=== PATIENT | male | born 1940 | race Hispanic/Latino ===

== ENCOUNTER 2024-03-23 00:27 | Inpatient (IN) | payer SELFPAY ==
[2024-03-23 01:21] LABS: #Basophils 0.03 10x3/uL (0.0-0.2); #Eosinophils Less than 0.03 10x3/uL (0.0-0.7); %Basophils 0.2 % (0.0-1.0); %Lymphocytes 3.4 % (21.0-51.0); %Monocytes 3.5 % (0.0-10.0); %Neutrophils 92.4 % (42.0-75.0); Hemoglobin 12.4 g/dL (14.0-18.0); Mean Corpuscular HGB CONC 34.4 g/dL (32.0-36.0); Mean Corpuscular Volume 87.2 fL (78.0-98.0); Mean Platelet Volume 11.2 fL (7.4-10.4); Platelet Count 148 10x3/uL (130-400); Red Blood Cell (RBC) Count 4.13 mill/uL (4.70-6.10)
[2024-03-23 01:42] LABS: ALT (SGPT) 99 U/L (8-55); AST (SGOT) 66 U/L (5-34); Albumin 2.7 g/dL (3.4-4.8); Alkaline Phosphatase 193 U/L (40-110); Anion Gap 14 mmol/L (10-20); BUN (Urea Nitrogen) 16 mg/dL (8.4-25.7); Bilirubin, Total 5.6 mg/dL (0.2-1.2); Calc. Creatinine Clearance 0 mL/min (70-130); Calcium 7.8 mg/dL (7.8-10.44); Carbon Dioxide 19 mmol/L (23-31); Chloride 104 mmol/L (98-107); Estimated GFR 87; Glucose 271 mg/dL (83-110); Lipase 197 U/L (8-78); Potassium 3.4 mmol/L (3.5-5.1); Protein, Total 5.7 g/dL (5.8-8.1); Sodium 134 mmol/L (136-145)
[2024-03-23] MEDS ORDERED: Piperacillin/Tazobactam 4.5 GM VIAL ONE (04:44)
[2024-03-23] MEDS ORDERED: Sodium Chloride 0.9% 100 ML ONE (04:44)
[2024-03-23] MEDS ORDERED: Dextrose 5% in Water 1,000 ML IV PRN (04:52)
[2024-03-23] MEDS ORDERED: Glucagon 1 MG/ML KIT IM PRN (04:52)
[2024-03-23] MEDS ORDERED: Dextrose 50% Abboject 50 ML SYRINGE SLOW IVP PRN (04:52)
[2024-03-23 05:58] LABS: Magnesium 1.5 mg/dL (1.6-2.6)
[2024-03-23] MEDS: Sodium Chloride 0.9% 1,000 ML IV SCH (06:14)
[2024-03-23] MEDS: Potassium Chloride 20 MEQ TAB PO SCH ×2 (06:14→15:51)
[2024-03-23] MEDS: Insulin Lispro 100 UNIT/ML 10 ML VIAL SC PRN (06:22)
[2024-03-23] MEDS ORDERED: Magnesium Sulfate 2 GM in Sodium Chloride 0.9% 100 ML IVPB SCH (06:45)
[2024-03-23] MEDS: Magnesium 2 GM/50 ML(in water) 2 GM in Premix 1 BAG IVPB SCH (07:06)
[2024-03-23 07:24] VITALS: BMI 25.8
[2024-03-23] MEDS ORDERED: Magnesium Sulfate 4 GM in Sodium Chloride 0.9% 250 ML 250 ML IVPB SCH (07:45)
[2024-03-23] MEDS ORDERED: Electrolyte Replacement Protocol 1 EACH FS SCH (07:45)
[2024-03-23] MEDS ORDERED: Electrolyte Replacement Protocol FS PRN (08:00)
[2024-03-23] MEDS: Piperacillin/Tazobactam 3.375 GM in Sodium Chloride 0.9% 100 ML IVPB SCH (08:10)
[2024-03-23] MEDS: NS 0.9% w/ 40 MEQ KCL 1,000 ML IV SCH ×2 (08:10→19:07)
[2024-03-23] MEDS ORDERED: Indomethacin 50 MG SUPP ONE (08:33)
[2024-03-23] MEDS ORDERED: Iopamidol 30 ML ONE (08:33)
[2024-03-23] MEDS: Potassium Chloride 20 MEQ in Premix 2 BAG IVPB SCH (09:18)
[2024-03-23] MEDS ORDERED: dilTIAZem 25 MG/5 ML VIAL ONE (10:17)
[2024-03-23] MEDS ORDERED: Bupivacaine PF 0.5% 30 ML VIAL ONE (10:20)
[2024-03-23] MEDS ORDERED: EPINEPHrine 1 MG/ML VIAL ONE (10:20)
[2024-03-23] MEDS ORDERED: Ondansetron PF 4 MG/2 ML Vial ONE (10:26)
[2024-03-23] MEDS ORDERED: Dexamethasone 4 mg/ml Vial ONE (10:26)
[2024-03-23] MEDS ORDERED: Rocuronium Bromide 10 MG/ML (10ML VIAL) ONE (10:26)
[2024-03-23] MEDS ORDERED: PROPOFOL 20 ML ONE (10:26)
[2024-03-23] MEDS ORDERED: Lidocaine 1% PF 5 ML VIAL ONE (10:26)
[2024-03-23] MEDS ORDERED: fentaNYL PF 100 MCG/2 ML SYRINGE ONE (10:26)
[2024-03-23] MEDS ORDERED: Diltiazem HCl/D5W 125 MG in Premix 1 BAG IVPB SCH (10:45)
[2024-03-23] MEDS ORDERED: Etomidate 40 MG (20 mL) VIAL ONE (10:46)
[2024-03-23] MEDS ORDERED: Glucagon 1 MG/ML KIT ONE (10:53)
[2024-03-23] MEDS ORDERED: dilTIAZem 125 MG in Sodium Chloride 0.9% 100 ML IVPB SCH (11:00)
[2024-03-23] MEDS ORDERED: PHENYLEPHRINE-NS 100 MCG/ML 10 ML SYRINGE ONE ×2 (11:43→12:21)
[2024-03-23 11:51] LABS: Potassium 3.5 mmol/L (3.5-5.1)
[2024-03-23] MEDS ORDERED: SUGAMMADEX SODIUM 200 MG/2 ML VIAL ONE (13:03)
[2024-03-23] MEDS ORDERED: Ondansetron ODT 4 MG TAB SL PRN (13:30)
[2024-03-23] MEDS ORDERED: Iopamidol 370 76% 100 ML VIAL ONE (14:14)
[2024-03-23] MEDS ORDERED: Ketorolac Tromethamine 30 MG (1 mL) VIAL ONE (14:40)
[2024-03-23] MEDS ORDERED: Acetaminophen 500 MG TAB ONE (14:40)
[2024-03-23] MEDS: Ketorolac Tromethamine 30 MG (1 mL) VIAL IVP SCH ×2 (14:42→18:20)
[2024-03-23] MEDS ORDERED: traMADol HCl 50 MG TAB ONE (14:45)
[2024-03-23] MEDS ORDERED: LevoFLOXacin D5W 500 mg (100 mL) BAG ONE (14:45)
[2024-03-23] MEDS ORDERED: Potassium Chloride 20 MEQ TAB ONE (14:49)
[2024-03-23] MEDS: traMADol HCl 50 MG TAB PO SCH (15:05)
[2024-03-23] MEDS: Acetaminophen 500 MG TAB PO SCH (15:06)
[2024-03-23] MEDS: LevoFLOXacin 500 mg/D5W 500 MG in Premix 1 BAG IVPB SCH (15:07)
[2024-03-23] MEDS: dilTIAZem 25 MG/5 ML VIAL SLOW IVP SCH ×2 (17:48)
[2024-03-23] MEDS: Ondansetron PF 4 MG/2 ML Vial IVP PRN (21:28)
[2024-03-23] MEDS: Enoxaparin 40 MG (0.4 mL) SYRINGE SC SCH (21:29)
[2024-03-24] MEDS: Insulin Lispro 100 UNIT/ML 10 ML VIAL SC PRN (01:03)
[2024-03-24 04:24] LABS: #Basophils Less than 0.03 10x3/uL (0.0-0.2); #Eosinophils Less than 0.03 10x3/uL (0.0-0.7); %Basophils 0.1 % (0.0-1.0); %Lymphocytes 1.8 % (21.0-51.0); %Monocytes 2.7 % (0.0-10.0); %Neutrophils 94.6 % (42.0-75.0); Hematocrit 36.3 % (42.0-52.0); Hemoglobin 12.4 g/dL (14.0-18.0); Mean Corpuscular HGB CONC 34.2 g/dL (32.0-36.0); Mean Corpuscular Hemoglobin 29.7 pg (27.0-31.0); Mean Corpuscular Volume 86.8 fL (78.0-98.0); Mean Platelet Volume 12.3 fL (7.4-10.4); Platelet Count 171 10x3/uL (130-400); RBC Distribution Width 14.3 % (11.5-14.5); Red Blood Cell (RBC) Count 4.18 mill/uL (4.70-6.10)
[2024-03-24 04:42] LABS: ALT (SGPT) 106 U/L (8-55); AST (SGOT) 84 U/L (5-34); Albumin 2.5 g/dL (3.4-4.8); Alkaline Phosphatase 165 U/L (40-110); Anion Gap 17 mmol/L (10-20); BUN (Urea Nitrogen) 29 mg/dL (8.4-25.7); Bilirubin, Total 1.8 mg/dL (0.2-1.2); Calc. Creatinine Clearance 63 mL/min (70-130); Carbon Dioxide 16 mmol/L (23-31); Chloride 106 mmol/L (98-107); Estimated GFR 76; Globulin 3.3 g/dL (2.4-3.5); Glucose 283 mg/dL (83-110); Lipase 9 U/L (8-78); Magnesium 1.8 mg/dL (1.6-2.6); Potassium 4.2 mmol/L (3.5-5.1); Protein, Total 5.8 g/dL (5.8-8.1); Sodium 135 mmol/L (136-145)
[2024-03-24] MEDS: Magnesium 2 GM/50 ML(in water) 2 GM in Premix 1 BAG IVPB SCH (09:06)
[2024-03-24] MEDS: LevoFLOXacin 500 mg/D5W 500 MG in Premix 1 BAG IVPB SCH ×2 (13:23→14:19)
[2024-03-24] MEDS: NIFEdipine XL 30 MG ER.TAB PO SCH (21:20)
[2024-03-24] MEDS: Insulin Glargine 30 UNITS/0.3 ML VIAL SC SCH (21:21)
[2024-03-25 04:23] LABS: #Basophils Less than 0.03 10x3/uL (0.0-0.2); #Eosinophils Less than 0.03 10x3/uL (0.0-0.7); %Basophils 0.1 % (0.0-1.0); %Eosinophils 0.1 % (0.0-10.0); %Lymphocytes 4.4 % (21.0-51.0); %Monocytes 4.9 % (0.0-10.0); %Neutrophils 89.9 % (42.0-75.0); Hematocrit 32.4 % (42.0-52.0); Hemoglobin 10.8 g/dL (14.0-18.0); Mean Corpuscular HGB CONC 33.3 g/dL (32.0-36.0); Mean Corpuscular Hemoglobin 29.3 pg (27.0-31.0); Mean Corpuscular Volume 87.8 fL (78.0-98.0); Mean Platelet Volume 12.1 fL (7.4-10.4); Platelet Count 147 10x3/uL (130-400); RBC Distribution Width 14.3 % (11.5-14.5); Red Blood Cell (RBC) Count 3.69 mill/uL (4.70-6.10)
[2024-03-25 04:54] LABS: ALT (SGPT) 74 U/L (8-55); AST (SGOT) 34 U/L (5-34); Albumin 2.2 g/dL (3.4-4.8); Alkaline Phosphatase 142 U/L (40-110); Anion Gap 9 mmol/L (10-20); BUN (Urea Nitrogen) 30 mg/dL (8.4-25.7); Bilirubin, Total 1.3 mg/dL (0.2-1.2); Calc. Creatinine Clearance 84 mL/min (70-130); Calcium 7.9 mg/dL (7.8-10.44); Carbon Dioxide 19 mmol/L (23-31); Chloride 107 mmol/L (98-107); Estimated GFR 90; Globulin 3.2 g/dL (2.4-3.5); Glucose 191 mg/dL (83-110); Magnesium 2.4 mg/dL (1.6-2.6); Potassium 4.4 mmol/L (3.5-5.1); Protein, Total 5.4 g/dL (5.8-8.1); Sodium 131 mmol/L (136-145)
[2024-03-25] MEDS ORDERED: hydrALAZINE 20 MG/ML VIAL SLOW IVP PRN (15:29)
[2024-03-25 19:56] LABS: Anion Gap 10 mmol/L (10-20); BUN (Urea Nitrogen) 18 mg/dL (8.4-25.7); Calc. Creatinine Clearance 97 mL/min (70-130); Calcium 7.9 mg/dL (7.8-10.44); Carbon Dioxide 18 mmol/L (23-31); Chloride 108 mmol/L (98-107); Estimated GFR 96; Glucose 244 mg/dL (83-110); Magnesium 1.9 mg/dL (1.6-2.6); Potassium 4.6 mmol/L (3.5-5.1); Sodium 131 mmol/L (136-145)
[2024-03-25] MEDS: metFORMIN 500 MG TAB PO SCH (21:24)
[2024-03-26] MEDS: Magnesium 2 GM/50 ML(in water) 2 GM in Premix 1 BAG IVPB SCH (01:08)
[2024-03-26 04:37] LABS: #Basophils 0.04 10x3/uL (0.0-0.2); %Basophils 0.4 % (0.0-1.0); %Eosinophils 0.7 % (0.0-10.0); %Lymphocytes 8.2 % (21.0-51.0); %Monocytes 6.6 % (0.0-10.0); %Neutrophils 82.7 % (42.0-75.0); Hematocrit 33.5 % (42.0-52.0); Hemoglobin 11.2 g/dL (14.0-18.0); Mean Corpuscular HGB CONC 33.4 g/dL (32.0-36.0); Mean Corpuscular Hemoglobin 29.6 pg (27.0-31.0); Mean Corpuscular Volume 88.6 fL (78.0-98.0); Mean Platelet Volume 11.7 fL (7.4-10.4); Platelet Count 173 10x3/uL (130-400); RBC Distribution Width 14.2 % (11.5-14.5); Red Blood Cell (RBC) Count 3.78 mill/uL (4.70-6.10)
[2024-03-26 05:42] LABS: ALT (SGPT) 50 U/L (8-55); AST (SGOT) 21 U/L (5-34); Alkaline Phosphatase 124 U/L (40-110); Anion Gap 12 mmol/L (10-20); BUN (Urea Nitrogen) 17 mg/dL (8.4-25.7); Calc. Creatinine Clearance 90 mL/min (70-130); Calcium 7.9 mg/dL (7.8-10.44); Carbon Dioxide 19 mmol/L (23-31); Chloride 107 mmol/L (98-107); Estimated GFR 94; Globulin 3.2 g/dL (2.4-3.5); Glucose 163 mg/dL (83-110); Magnesium 2.6 mg/dL (1.6-2.6); Potassium 4.3 mmol/L (3.5-5.1); Protein, Total 5.2 g/dL (5.8-8.1); Sodium 134 mmol/L (136-145)
[2024-03-26 13:19] LABS: #Basophils 0.04 10x3/uL (0.0-0.2); %Basophils 0.3 % (0.0-1.0); %Eosinophils 0.6 % (0.0-10.0); %Lymphocytes 8.8 % (21.0-51.0); %Monocytes 6.9 % (0.0-10.0); %Neutrophils 81.7 % (42.0-75.0); Hematocrit 35.3 % (42.0-52.0); Hemoglobin 11.9 g/dL (14.0-18.0); Mean Corpuscular HGB CONC 33.7 g/dL (32.0-36.0); Mean Corpuscular Hemoglobin 29.4 pg (27.0-31.0); Mean Corpuscular Volume 87.2 fL (78.0-98.0); Mean Platelet Volume 11.3 fL (7.4-10.4); Platelet Count 172 10x3/uL (130-400); RBC Distribution Width 14.1 % (11.5-14.5); Red Blood Cell (RBC) Count 4.05 mill/uL (4.70-6.10)
[2024-03-26] MEDS ORDERED: Pantoprazole 40 MG GRANULES PACKET PO SCH (14:28)
[2024-03-26] MEDS: Furosemide 40 MG (4 mL) VIAL SLOW IVP SCH (15:05)
[2024-03-26] MEDS: Pantoprazole DR 40 MG TAB PO SCH ×2 (15:06→15:07)
[2024-03-26] MEDS: Lisinopril 10 MG TAB PO SCH (15:06)
[2024-03-26] MEDS: metFORMIN 500 MG TAB PO SCH (15:06)
[2024-03-26] MEDS: Piperacillin/Tazobactam 3.375 GM in Sodium Chloride 0.9% 100 ML IVPB SCH ×2 (15:07→21:01)
[2024-03-27 03:41] LABS: #Basophils 0.03 10x3/uL (0.0-0.2); %Basophils 0.3 % (0.0-1.0); %Eosinophils 1.2 % (0.0-10.0); %Lymphocytes 9.6 % (21.0-51.0); %Monocytes 7.1 % (0.0-10.0); %Neutrophils 79.5 % (42.0-75.0); Hematocrit 30.8 % (42.0-52.0); Hemoglobin 10.5 g/dL (14.0-18.0); Mean Corpuscular HGB CONC 34.1 g/dL (32.0-36.0); Mean Corpuscular Hemoglobin 29.5 pg (27.0-31.0); Mean Corpuscular Volume 86.5 fL (78.0-98.0); Mean Platelet Volume 11.2 fL (7.4-10.4); Platelet Count 179 10x3/uL (130-400); RBC Distribution Width 13.9 % (11.5-14.5); Red Blood Cell (RBC) Count 3.56 mill/uL (4.70-6.10)
[2024-03-27 04:02] LABS: Anion Gap 11 mmol/L (10-20); BUN (Urea Nitrogen) 12 mg/dL (8.4-25.7); Calc. Creatinine Clearance 88 mL/min (70-130); Calcium 7.5 mg/dL (7.8-10.44); Carbon Dioxide 21 mmol/L (23-31); Chloride 106 mmol/L (98-107); Estimated GFR 93; Glucose 179 mg/dL (83-110); Magnesium 1.6 mg/dL (1.6-2.6); Potassium 3.8 mmol/L (3.5-5.1); Sodium 134 mmol/L (136-145)
[2024-03-27] MEDS: Lisinopril 10 MG TAB PO SCH (08:44)
[2024-03-27] MEDS: Magnesium 2 GM/50 ML(in water) 2 GM in Premix 1 BAG IVPB SCH (08:45)
[2024-03-27 12:25] VITALS: BP 161/73; TEMP 98.4
== END 2024-03-27 15:11 | disposition home or self-care (01) | DRG 417 ==
LOC: ERS 00:27 → SURG B 05:55 → SURG A 13:24 → PCU 17:37
PROVIDERS: ADMIT Internal Medicine; ATTEND Internal Medicine
PROC: 0FT44ZZ Resection of Gallbladder, Percutaneous Endoscopic Approach (ICD-10-PCS; principal; 2024-03-23)
PROC: 0FC98ZZ Extirpation of Matter from Common Bile Duct, Via Natural or Artificial Opening Endoscopic (ICD-10-PCS; 2024-03-23)
DX: K80.42 Calculus of bile duct with acute cholecystitis without obstruction (principal); K85.90 Acute pancreatitis without necrosis or infection, unspecified; K55.1 Chronic vascular disorders of intestine; E87.20 Acidosis, unspecified; I10 Essential (primary) hypertension; E11.9 Type 2 diabetes mellitus without complications; E87.6 Hypokalemia; R16.0 Hepatomegaly, not elsewhere classified; I70.1 Atherosclerosis of renal artery; I48.91 Unspecified atrial fibrillation; Z79.899 Other long term (current) drug therapy
CPT/HCPCS: 36415; 36416; 71045; 74177; 74182; 74330; 76705; 80048; 80053; 82105; 82378; 83605; 83690; 83735; 83880; 84443; 85025; 87040; 88304; 93005; 93010; 93306; 96361; 96365; C1889; J0171; J0665; J1100; J1611; J1650; J1815; J1885; J1940; J1956; J2405; J2543; J2704; J3475; J3480; J7030; Q9967